=== PATIENT | male | born 1970 | race Caucasian/White ===

== ENCOUNTER → 2016-12-26 | Outpatient (CLI) | payer OTHER ==
--- NOTE | 2016-12-26 14:22 | CARD ---
APPROVED REPORT INDICATION Dyspnea Chest Pain PROCEDURE The patient underwent an Exercise Stress Test using the Juan Manuel Protocol. Blood pressure, heart rate, a nd EKG were monitored. An Echocardiogram was performed by solar fabrication technician in four stages in quad fashion. At peak stress four se lected images were obtained and placed side by side with resting images for comparison. Test Type: Exercise Stress Nurse/Tech: sondra hernandes Test Indications: SOA Cardiac History and Allergies: NONE STATED, SEE EHR Medications: SEE EHR Medical History: ALCOHOLISM - PAST WITH NEUROLOGICAL EFFECTS (BALANCE AND COORDINATON), SMOKER. Resting ECG: SR Resting Heart Rate: 74 bpm Resting Blood Pressure: 129/82mmHg Pretest Chest Pain: No chest pain Nurse/Tech Notes LUNG SOUNDS CLEAR. S1S2. PT WITH NOTED TREMOR OF UPPER BODY AND UNSTEADY GATE. PT WAS ABLE TO WALK TH ROUGH THE SECOND STAGE BUT DUE TO POOR GATE AND TREMORS PT ENDED THE STUDY. PT WITH NO VISIBLE SOA AT THE TIME. Consent: The procedure was explained to the patient in lay terms. Informed consent was witnessed. Roman eout was entered into [employer]. History and Stress Test performed by SONDRA HERNANDES Stress Symptoms LEG FATIGUE. POST EXERCISE Reason for Termination: Patient request Target HR: 150 Max HR: 170 bpm 97% of Maximum Predicted HR: 176 bpm Exercise duration: 6:19 min:sec, 2 Stage Exercise capacity: 7.0METs Max Blood Pressure: 151/85mmHg Blood Pressure response to exercise: Normal blood pressure response during stress. Heart Rate response to exercise: WNL Chest Pain: No. Arrhythmia: No. ST Change: No. RESTING ECG Rhythm: Sinus Arrhythmias: None STRESS ECG Rhythm: Sinus Tachycardia Normal ST-Segment changes. Stress EKG shows no significant changes. Preliminary Notification Critical Value: No <Conclusion> Average exercise capacity at 7.0 Mets achieved. No evidence of ischemia by EKG. Low risk study
== END | disposition home or self-care (01) ==
LOC: ECHO 12:27
PROVIDERS: ATTEND Physician Assistant
DX: R06.09 Other forms of dyspnea (principal); R07.9 Chest pain, unspecified
CPT/HCPCS: 93017